=== PATIENT | male | born 2000 | race Caucasian/White ===

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

== ENCOUNTER 2020-02-17 23:17 | Emergency (ER) | payer OTHER ==
--- NOTE | 2020-02-17 23:29 | ED Physician Documentation ---
History of Present Illness - Stated complaint Stated Complaint: MHE - History obtained from History obtained from: Patient (Patient is a 19-year-old male brought in by police for concerns of suicidal thoughts. Patient is a 19-year-old male he has a previous history of overdose attempt. Patient reports she has been having some suicidal thoughts he denies a specific plan he does admit to depression denies any auditory or visual hallucinations. Denies any homicidal thoughts.Patient denies any alcohol or illicit drug use.The patient reports that currently he is here voluntarily.) Review of Systems Constitutional: reports: Reviewed and negative Eyes: reports: Reviewed and negative Ears: reports: Reviewed and negative Nose: reports: Reviewed and negative Throat: reports: Reviewed and negative Cardiac: reports: Reviewed and negative Respiratory: reports: Reviewed and negative GI: reports: Reviewed and negative : reports: Reviewed and negative Skin: reports: Reviewed and negative Musculoskeletal: reports: Reviewed and negative Neurologic: reports: Reviewed and negative Psychiatric: reports: Depressed, Suicidal Endocrine: reports: Reviewed and negative Immunocompromised: reports: Reviewed and negative PD PAST MEDICAL HISTORY - Past Medical History Psych: ADD/ADHD - Past Surgical History Past Surgical History: No - Present Medications Home Medications: Ambulatory Orders Medication Instructions Recorded Confirmed Methylphenidate HCl [Concerta] 27 mg PO DAILY 12/05/16 12/05/16 - Allergies Allergies/Adverse Reactions: Allergies Allergy/AdvReac Type Severity Reaction Status Date / Time No Known Drug Allergies Allergy Verified 12/05/16 18:23 - Social History Does the pt smoke?: No Smoking Status: Never smoker Does the pt drink ETOH?: No Does the pt have substance abuse?: No - Immunizations Immunizations are current?: Yes - POLST Patient has POLST: No PD ED PE NORMAL - Vitals Vital signs reviewed: Yes - General General: Alert and oriented X 3, No acute distress - HEENT HEENT: PERRL - Neck Neck: Supple, no meningeal sign - Cardiac Cardiac: RRR, No murmur - Respiratory Respiratory: Clear bilaterally - Abdomen Abdomen: Normal bowel sounds, Soft, Non tender, Non distended - Derm Derm: Warm and dry - Extremities Extremities: No deformity - Neuro Neuro: Alert and oriented X 3 - Psych Psych: Other (Admits to having suicidal thoughts without a plan.) Results - Vitals Vitals: Vital Signs - 24 hr 02/17/20 02/18/20 23:30 07:24 Temperature 36.7 C 36.6 C Heart Rate 98 76 Respiratory 18 17 Rate Blood Pressure 114/77 124/74 O2 Saturation 99 98 Oxygen O2 Source Room air - Labs Labs: Laboratory Tests 02/17/20 02/17/20 02/17/20 23:40 23:40 23:40 WBC 8.7 RBC 5.45 Hgb 15.7 Hct 46.1 MCV 84.6 MCH 28.8 MCHC 34.1 RDW 11.3 L Plt Count 310 MPV 9.7 Neut # (Auto) 5.8 Lymph # (Auto) 1.9 Cotton # (Auto) 0.9 Eos # (Auto) 0.0 Baso # (Auto) 0.0 Absolute Nucleated RBC 0.00 Nucleated RBC % 0.0 Sodium 139 Potassium 3.4 L Chloride 100 L Carbon Dioxide 27 Anion Gap 12.0 BUN 6 Creatinine 0.7 Estimated GFR (MDRD) 144 Glucose 101 H Calcium 9.2 Total Bilirubin 0.9 AST 14 ALT 13 Alkaline Phosphatase 103 Total Protein 8.3 H Albumin 4.4 Globulin 3.9 Albumin/Globulin Ratio 1.1 Lipase 30 TSH 1.30 Urine Color Urine Clarity Urine pH Ur Specific [place] Urine Protein Urine Glucose (UA) Urine Ketones Urine Occult Blood Urine Nitrite Urine Bilirubin Urine Urobilinogen Ur Leukocyte Esterase Urine RBC Urine WBC Ur Squamous Epith Cells Urine Bacteria Urine Mucus Ur Microscopic Review Urine Culture Comments Salicylates < 6.0 Urine Opiates Screen Ur Oxycodone Screen Urine Methadone Screen Ur Propoxyphene Screen Acetaminophen < 10 L Ur Barbiturates Screen Ur Tricyclics Screen Ur Phencyclidine Scrn Ur Amphetamine Screen U Methamphetamines Scrn U Benzodiazepines Scrn Urine Cocaine Screen U Cannabinoids Screen Ethyl Alcohol < 5.0 02/17/20 23:52 WBC RBC Hgb Hct MCV MCH MCHC RDW Plt Count MPV Neut # (Auto) Lymph # (Auto) Cotton # (Auto) Eos # (Auto) Baso # (Auto) Absolute Nucleated RBC Nucleated RBC % Sodium Potassium Chloride Carbon Dioxide Anion Gap BUN Creatinine Estimated GFR (MDRD) Glucose Calcium Total Bilirubin AST ALT Alkaline Phosphatase Total Protein Albumin Globulin Albumin/Globulin Ratio Lipase TSH Urine Color YELLOW Urine Clarity SL. CLOUDY Urine pH 6.5 Ur Specific [place] 1.025 Urine Protein 30 H Urine Glucose (UA) NEGATIVE Urine Ketones NEGATIVE Urine Occult Blood TRACE-INTA Urine Nitrite NEGATIVE Urine Bilirubin NEGATIVE Urine Urobilinogen 1 (NORMAL) Ur Leukocyte Esterase MODERATE H Urine RBC 0-5 Urine WBC >25 H Ur Squamous Epith Cells RARE Squamous Urine Bacteria Few Urine Mucus Few Strands Ur Microscopic Review INDICATED Urine Culture Comments INDICATED Salicylates Urine Opiates Screen NEGATIVE Ur Oxycodone Screen NEGATIVE Urine Methadone Screen NEGATIVE Ur Propoxyphene Screen NEGATIVE Acetaminophen Ur Barbiturates Screen NEGATIVE Ur Tricyclics Screen NEGATIVE Ur Phencyclidine Scrn NEGATIVE Ur Amphetamine Screen NEGATIVE U Methamphetamines Scrn NEGATIVE U Benzodiazepines Scrn NEGATIVE Urine Cocaine Screen NEGATIVE U Cannabinoids Screen NEGATIVE Ethyl Alcohol PD MEDICAL DECISION MAKING - ED course Complexity details: reviewed old records, reviewed results, re-evaluated patient (04:06 After this patient was informed that he had been accepted at [facility] on a voluntary basis he now reports that he wants to go home and wants to leave at this point the patient will be monitored and evaluated for any elopement he is now on an involuntary status and the designated mental health provider has been dispatched.), considered differential (03:13 Patient is here voluntarily although he was brought in by law enforcement admits to having suicidal thoughts patient is medically cleared evaluated by tele-psychiatrist who recommends admission and starting the patient on Prozac 10 mg daily if the patient switches from voluntary he will be made involuntary and then he will be evaluated by the designated mental health provider however currently he is in a voluntary status.), d/w patient, d/w edi consultant (telepsych recommends admission. patient is voluntary currently.), other (patient accepted by [facility] by medical provider amy tanner) - Consults Consults: Discussed case with ([facility]. Patient to be Evaluated by the designated mental health provider to determine whether patient needs to be held involuntary. Patient will be signed out at shift change to Dr. Spenser Viramontes.) Departure - Departure Disposition: 65 Psych Hosp/Unit DC/Xfer Clinical Impression: Anxiety Major depressive disorder Qualifiers: Major depression recurrence: unspecified whether recurrent Active/Remission status: remission status unspecified Qualified Code(s): F32.9 - Major depressive disorder, single episode, unspecified Condition: Stable Instructions: ED Depression Discharge Date/Time: 02/18/20 13:55
[2020-02-17 23:52] LABS: BASOPHILS % (AUTO) 0.5 %; EOSINOPHILS % (AUTO) 0.3 %; HGB - HEMOGLOBIN 15.7 g/dL (14.0-18.0); LYMPHOCYTES # (AUTO) 1.9 10^3/uL (1.5-3.5); LYMPHOCYTES % (AUTO) 21.8 %; MEAN CORPUSCULAR HEMOGLOBIN 28.8 pg (27.0-31.0); MEAN CORPUSCULAR HGB CONC 34.1 g/dL (32.0-36.0); MEAN CORPUSCULAR VOLUME 84.6 fL (80.0-94.0); MEAN PLATELET VOLUME 9.7 fL (7.4-11.4); MONOCYTES # (AUTO) 0.9 10^3/uL (0.0-1.0); MONOCYTES % (AUTO) 9.8 %; NEUTROPHILS # (AUTO) 5.8 10^3/uL (1.5-6.6); NEUTROPHILS % (AUTO) 67.3 %; PLT - PLATELET COUNT 310 10^3/uL (130-450); RED BLOOD COUNT 5.45 10^6/uL (4.70-6.10); RED CELL DISTRIBUTION WIDTH 11.3 % (12.0-15.0); WHITE BLOOD COUNT 8.7 x10^3/uL (4.8-10.8)
[2020-02-17 23:56] LABS: MUDS CUTOFF CONCENTRATIONS CUTOFF CONC BELOW:
[2020-02-17 23:58] LABS: GLUCOSE, URINE (UA) NEGATIVE (NEGATIVE); KETONES,URINE (UA) NEGATIVE (NEGATIVE); LEUKOCYTE ESTERASE, URINE MODERATE (NEGATIVE); NITRITE,URINE NEGATIVE (NEGATIVE); OCCULT BLOOD,URINE TRACE-INTA (NEGATIVE); PH,URINE 6.5 PH (5.0-7.5); PROTEIN,URINE 30 mg/dL (NEGATIVE); UROBILINOGEN,URINE 1 (NORMAL) E.U./dL (NORMAL)
[2020-02-18 00:04] LABS: BILIRUBIN,URINE NEGATIVE (NEGATIVE); CLARITY,URINE SL. CLOUDY (CLEAR); ICTOTEST,URINE NEGATIVE
[2020-02-18 00:04] LABS: ACETAMINOPHEN < 10 ug/mL (10-30); ALBUMIN 4.4 g/dL (3.2-5.5); ALBUMIN/GLOBULIN RATIO 1.1 (1.0-2.2); ALKALINE PHOSPHATASE 103 IU/L (42-121); ALT ALANINE AMINOTRANSFERASE 13 IU/L (10-60); AST ASPARTATE AMINOTRANSFERASE 14 IU/L (10-42); BILIRUBIN,TOTAL 0.9 mg/dL (0.2-1.0); BUN - BLOOD UREA NITROGEN 6 mg/dL (6-20); CALCIUM 9.2 mg/dL (8.5-10.3); CARBON DIOXIDE - CO2 27 mmol/L (21-32); CHLORIDE 100 mmol/L (101-111); CREATININE 0.7 mg/dL (0.6-1.2); GLUCOSE 101 mg/dL (70-100); LIPASE 30 U/L (22-51); SALICYLATE < 6.0 mg/dL; SODIUM 139 mmol/L (135-145); TOTAL PROTEIN 8.3 g/dL (6.7-8.2)
[2020-02-18 00:10] LABS: BACTERIA,URINE Few /HPF (None Seen); MUCUS,URINE Few Strands; RBC,URINE 0-5 /HPF (0-5); SQUAMOUS EPITHELIAL CELL,UR RARE Squamous (<= Few)
[2020-02-18 00:11] LABS: AMPHETAMINE SCREEN,URINE NEGATIVE (NEGATIVE); BENZODIAZEPINES SCREEN, URINE NEGATIVE (NEGATIVE); COCAINE SCREEN URINE NEGATIVE (NEGATIVE); METHADONE SCREEN, URINE NEGATIVE (NEGATIVE); METHAMPHETAMINES SCREEN, URINE NEGATIVE (NEGATIVE); OPIATE SCREEN, URINE NEGATIVE (NEGATIVE); OXYCODONE SCREEN, URINE NEGATIVE (NEGATIVE); PROPOXYPHENE SCREEN, URINE NEGATIVE (NEGATIVE); TRICYCLIC ANTIDEPRESSANT,URINE NEGATIVE (NEGATIVE)
--- NOTE | 2020-02-18 02:56 | TELEPSYCH PHYS NOTE ---
Telepsych Note - CHIEF COMPLAINT/HX OF PRESENT ILLNESS Cheif Complaint and History of Present Illness: Chief Complaint: SI HPI: The patient is a 19-year-old male with a history of depression and ADHD. He was brought to the ER by police after admitting to suicidal ideations. The patient was found in a park after it was closed. He admitted to thoughts of punching glass and said that he would not be able to stay safe if he was released home. When seen by psychiatry, the patient stated that he was dealing with numerous stressors including his parents getting , unemployment, mounting financial difficulties, and a recent breakup. Patient stated that he has been having thoughts of suicide for the past week. He is living with his stepfather who is currently deployed in [place]. The stepfather returns home next week. The patient's mother lives in [place]. - SI/HI/SELF HARM SI/HI/Self Harm Text (Current or History of):: One prior suicide attempt in 2017 (overdose on an unknown stimulant). - VIOLENCE/LEGAL/COLLATERAL Violence - Legal - Collateral: Violence: none Legal: none Collateral: None available. The patient did not want his stepdad or mother contacted. "I'm trying to keep this low fierro." - PSYCHIATRIC HX/TREATMENT HX Psychiatric: ADD/ADHD Psychiatric/Treatment Hx Other: No prior inpatient admissions. No current outpatient care for either ADHD or depression. The patient is not currently prescribed any medication. - MEDICAL HX Does the pt have a hx of MRSA?: Yes - HOME MEDICATIONS Home Meds (as last confirmed): Patient History Medication Instructions Recorded Confirmed Methylphenidate HCl [Concerta] 27 mg PO DAILY 12/05/16 12/05/16 - ALLERGIES Allergies (as last confirmed): Allergies Allergy/AdvReac Type Severity Reaction Status Date / Time No Known Drug Allergies Allergy Verified 12/05/16 18:23 - FAMILY PSYCH/SUICIDE/SOCIAL HX-MENTAL Family - Suicide - Social Hx and Mental Status Exam: Family Psychiatric History: none. Social History: single, Lives with stepfather who is currently deployed in [place] and returns next week Employment: unemployed Education: HS grad Stressors: see HPI History: none Abuse: none. Mental Status Examination: Attitude and behavior: cooperative Speech: WNL Affect and mood: sad affect and mood Association and thought processes: linear Thought content: no delusions, + SI, no HI Perception: no hallucinations Sensorium, memory, and orientation: AAOx3 Intellectual functioning: average Insight and judgment: impaired - PATIENT PROBLEM LIST (1) MDD (major depressive disorder), recurrent episode, severe Qualifiers: Psychotic features: without psychotic features Qualified Code(s): F33.2 - Major depressive disorder, recurrent severe without psychotic features Impression: Patient is a 19-year-old male with a history of ADHD and depression was brought to the hospital due to depressed mood and suicidal ideations. He has a history of a prior suicide attempt. The patient is not currently in treatment and he is not on medication for either depression or ADHD. The patient is currently a risk to hurt himself due to a lack of supports, significant stressors, and an untreated impulse control disorder which makes the patient more likely to act in a risky manner. Inpatient care is appropriate. The patient should be psychiatrically admitted (involuntarily if he does not agree). - TREATMENT/PHARMACOLOGICAL RECOMMENDATION Treatment - Pharmacological - Therapy Recommendations: Start Prozac 10 mg daily. The patient is not currently volunteer for treatment and should be admitted on involuntary basis unless he changes his mind and agrees to voluntary psychiatric admission. - TIME SPENT & PROVIDER LOCATION Telepsych consultation conducted via videoconferencing: Yes List names and roles of persons who participated in consult: Emanuel Ballesteros MD Telepsych Provider Location: [place] Time Telepsych consult began: 05:25 Time Telepsych consult completed: 05:50
[2020-02-18] MEDS ORDERED: FLUoxetine 10 MG CAPSULE PO ONE (03:00)
[2020-02-18 07:25] VITALS: BP 124/74
[2020-02-18] MEDS ORDERED: LORazepam 1 MG TABLET PO STA (09:52)
== END 2020-02-18 13:55 ==
LOC: ED 23:17
DX: F33.2 Major depressive disorder, recurrent severe without psychotic features (principal); F41.9 Anxiety disorder, unspecified; R45.851 Suicidal ideations; F90.9 Attention-deficit hyperactivity disorder, unspecified type; Z11.59 Encounter for screening for other viral diseases
CPT/HCPCS: 36415; 80320; 80329; 81001; 83690; 87086; 87635; 99283; 99285; A9270; G0425; J8499; 80053; 80306; 80307; 81003; 81599; 84443; 85025